=== PATIENT | female | born 1950 | race Caucasian/White ===

== ENCOUNTER 2020-08-03 19:33 | Emergency (ER) | payer MEDICARE ==
[~2020-08-03] VITALS: Ht 167.6 cm; Wt 63.5 kg
[2020-08-03] MEDS ORDERED: [UNRECOGNIZED DRUG - REMARK] (19:48)
[2020-08-03] MEDS ORDERED: Norco 5-325 Ta1 EACH PO (20:54)
== END 2020-08-03 21:11 | disposition home or self-care (01) ==
LOC: ER 19:33
DX: S42.251A Displaced fracture of greater tuberosity of right humerus, initial encounter for closed fracture (principal); S43.014A Anterior dislocation of right humerus, initial encounter; Z88.2 Allergy status to sulfonamides; Z88.1 Allergy status to other antibiotic agents; Z87.891 Personal history of nicotine dependence; W01.198A Fall on same level from slipping, tripping and stumbling with subsequent striking against other object, initial encounter
CPT/HCPCS: 23650; 73030; 96374-59; 99283-25; A9270; J1170